=== PATIENT | male | born 1975 | race Caucasian/White ===

== ENCOUNTER 2017-03-13 17:24 | Emergency (ER) | payer OTHER ==
[~2017-03-13] VITALS: Ht 177.8 cm; Wt 79.4 kg
[~2017-03-13 17:24] MED LIST: ALEVE220 MG PO; CIPRO 500MG TA500 MG PO; FLONASE 50 MCG16 GM; HYDROCODONE-APA1 TA2 PO; HYDROCODONE1 TABLET PO; IBUPROFEN600 MG PO; KEFLEX 500MG.500 MG PO; LAMICTAL 100 M100 MG PO; LORTAB 5/3251 TAB PO; LORTAB 500 MG-11 TAB PO; LORTAB 500 MG-71 TAB PO; NAPROXEN SODIU500 MG PO; ONDANSETRON4 M1 PO; PHENERGAN 12.12.5 M1 PO; PHENERGAN 25MG.25 M1 PO; PHENERGAN25 M3 PO; TYLENOL SINUS C PO; TYLENOL SINUS OR; TYLENOL W/CODEI1 TA2 PO; ULTRAM50 MG PO; VICODIN 5/500 T1 TAB PO; VICODIN 7.5/501 EACH PO; VICODIN ES 7.51 EACH PO; ZOFRAN ODT4 MG PO; ZOFRAN ODT8 MG PO
--- OUTSIDE RECORDS SUMMARY | 2017-03-13 17:29 | External Medical Summary Rpt ---
Author Author , Organization [employer] Address Unknown Phone Unavailable Support Name Relationship Address Phone ANUSHA Next Of Kin [address] [place] [address] [facility] [address] [phone] [place] [address] Purpose Continuity of Care Document - 01-28-2013 through 2016 Allergies, Adverse Reactions, Alerts Type Allergy to substance Adverse Reaction to Substance Substance Reaction Severity NO KNOWN ALLERGIES Unknown Unknown Medications Na ND Rx Da Fi Fi Am Da Di Ph RX Ph St me C No te ll ll ou ys ag ar # ys at rm s nt no ma ic us Or Da si cy ia de te s n re d HY [address] 07 -3 OC 90 0- Lo OD 78 20 ng ON 07 14 er E/ 9H AP Ac AP ti ve 5/ 50 0M G TA KE Vital Signs 01-28-2013 23:28 Name Value Interpretat Reference Comment ion Range Body 98.0 [degF] Temperature BP 64 mm[Hg] Diastolic BP Systolic 117 mm[Hg] Heart 96 /min Rate/Pulse O2% 99 % Respiratory 20 /min Rate 01-28-2013 22:15 Name Value Interpretat Reference Comment ion Range Body 98.0 [degF] Temperature BP 77 mm[Hg] Diastolic BP Systolic 137 mm[Hg] Heart 105 /min Rate/Pulse O2% 98 % Respiratory 20 /min Rate Encounters Encounter Start End Date Code Location Performer Type Date Emergency SHAWN Almonte MD (ER) 3 22:21 3 23:29 [facility]
--- OUTSIDE RECORDS SUMMARY | 2017-03-13 17:29 | External Medical Summary Rpt ---
Author Author [employer] Organization [employer] Address Unknown Phone Unavailable Purpose Continuity of Care Document - through 2016
--- OUTSIDE RECORDS SUMMARY | 2017-03-13 17:29 | External Medical Summary Rpt ---
Author Author Ksenia [facility] Organization [facility] Address Unknown Phone Unavailable Care Team Providers Care Umbrella Cutter Name Role Phone PHY, UNKNOWN PCP Unavailable Encounter [facility] [id number] Date(s): 11/21/15 - 12/11/16 [facility] [address] [place] [address]- [phone] Discharge Disposition: OP Self Care or Home Attending Physician: Jonathon Carreno MD Admitting Physician: Jonathon Carreno MD Referring Physician: Jonathon Carreno MD Reason for Visit PM Vital Signs No data available for this section Problem List No data available for this section Allergies, Adverse Reactions, Alerts No data available for this section Medications No data available for this section Results No data available for this section Immunizations No data available for this section Procedures No data available for this section Social History No data available for this section Assessment and Plan No data available for this section Hospital Discharge Instructions No data available for this section
--- OUTSIDE RECORDS SUMMARY | 2017-03-13 17:29 | External Medical Summary Rpt ---
Author Author , Organization [employer] Address Unknown Phone Unavailable Support Name Relationship Address Phone ANUSHA Next Of Kin [address] [place] [address] [facility] 36 [phone] [place] [address] Purpose Continuity of Care Document - 01-28-2013 [...] Almonte MD (ER) 3 22:21 3 23:29 [facility]
--- OUTSIDE RECORDS SUMMARY | 2017-03-13 17:29 | External Medical Summary Rpt ---
Author Author Ksenia [facility] Organization [facility] Address Unknown Phone Unavailable Care Team Providers Care Sales Recruiting Coordinator Name Role Phone PHY, UNKNOWN PCP Unavailable Encounter [facility] [id number] Date(s): 11/21/15 - 12/11/16 [facility] [address] [place] [address]- Discharge Disposition: OP Self Care or Home [...]
--- OUTSIDE RECORDS SUMMARY | 2017-03-13 17:29 | External Medical Summary Rpt ---
Demographics Preferred Language Bulgarian Marital Status Unknown Denominational Affiliation Unknown Race Unknown Ethnic Group Unknown Author Author , Organization [employer] Address Unknown Phone Unavailable Purpose Continuity of Care Document - through 2016 Immunization No patient found.
--- OUTSIDE RECORDS SUMMARY | 2017-03-13 17:29 | External Medical Summary Rpt ---
Demographics Preferred Language Turkmen Marital Status Unknown Nondenominational Affiliation Unknown Race Unknown Ethnic Group Unknown Author Author , Organization [employer] Address Unknown Phone Unavailable Purpose Continuity of Care Document - through 2016 Immunization No patient found.
--- OUTSIDE RECORDS SUMMARY | 2017-03-13 17:30 | External Medical Summary Rpt ---
Author Author CONSTANTINOAILEEN Chan, [employer] Organization [employer] Address Unknown Phone Unavailable Results XR SHOULDER RIGHT 4 VIEWS Observa Value Referen Units Interpr Notes Date tion ce etation Range TEXT XR No No No No Nov 05 DIAGNOS SHOULDE informa informa informa informa 2012 IS R RIGHT tion in tion in tion in tion in 2:34 PM BATTERY 4 source source source source VIEWS data data data data Nov 05, 2012 02:34:3 5 PMClini marcelino: Trauma. There is deformi ty of the distal clavicl e. Minimal overlyi ng soft tissues welling . This may beacute . The glenohu meral joint is intact. IMPRESS ION: Probabl e acute distal clavicu lar fractur e XR LUMBAR SPINE AP AND LATERAL Observa Value Referen Units Interpr Notes Date tion ce etation Range TEXT PROCEDU No No No No Sep 02 DIAGNOS RE: informa informa informa informa 2011 IS Lumbar tion in tion in tion in tion in 5:40 PM BATTERY spine, source source source source 09/02/20 data data data data 12.GABI CATION: Fall, pain.FI NDINGS: AP and lateral lumbar spine. No compari son. There appears to silvana chronic F6wtvle ylolysi s with grade 1 spondyl olisthe sis. No acute fractur es ordislo cations areiden tified. IMPRESS ION: Chronic appeari ng L5 spondyl olysis with grade 1spondy lolisth esis. No acute bonyfin dings. XR SHOULDER LEFT 4 VIEWS Observa Value Referen Units Interpr Notes Date tion ce etation Range TEXT PROCEDU No No No No Sep 02 DIAGNOS RE: informa informa informa informa 2011 IS Four tion in tion in tion in tion in 5:40 PM BATTERY view source source source source left data data data data shoulde r, 09/02/20 12.GABI CATION: Trauma, pain.FI NDINGS: Four view left shoulde r. No compari son. No fractur e ordislo cation. No worriso me bonyles ion. No radiopa que foreign body.IM PRESSIO N: Negativ e left shoulde r films.
--- OUTSIDE RECORDS SUMMARY | 2017-03-13 17:30 | External Medical Summary Rpt ---
[...] compari son. There appears to silvana chronic C3cyrmx ylolysi s with grade 1 spondyl olisthe [...]
--- NOTE | 2017-03-13 17:56 | Urgent Treatment Center Report ---
History of Present Issue Date/Time Seen by Provider 03/13/17 1750 Visit Reason Pt arrived:Walked Presenting Problem:PT STATES WAKING UP FEELING BAD THIS MORNING. STATES SINUS PAIN/PRESSURE, HEADACHE, VOMITING, HEAD CONGESTION AND CHILLS Location if Accident: Onset of symptoms date/time:03/13/17/ or onset unknown for:MEDICAL HX UNKNOWN Have you (or family members/close friends) recently traveled outside the [place]? N If Yes, where/when: Have you had exposure to infectious disease within the past month? TB? Other? Specify: Source patient, RN notes reviewed, family Exam Limitations no limitations Comment Patient has headache, sinus pain, pressure, and vomiting, body aches and chills since this am. ALLERGIES Coded Allergies: No Known Allergies (10/13/16) History Medical History General CAD? No Angina: No RI: No Hypertension? No Hyperlipidemia? No CHF? No DVT? No PE? No COPD? No Asthma? Yes Anemia? No GERD? No Gastric ulcers? No GI Bleed? No Hernia? No Thyroid Problems? No Hypothyroidism? No CVA? No Seizures? Yes Diabetes? No Renal Insuffiency? No UTI? No Stones? Yes GB Disease: No Nephritic Syndrome? No Asplenia? No Hepatitis? No Sickle Cell Disease? No Arthritis? No Migraines? No Cataracts? No Glaucoma? No MRSA? No HIV? No TB? No Anxiety? No Depression? No Cancer? No Immunization HX DT/Tetanus Unknown Flu NEVER Pneumonia NEVER Surgical Hx Previous Surgery?Y KIDNEY STONE REMOVED L ROTATOR CUFF REPAIR Family History Family HX Diabetes Yes CAD Yes Hypertension Yes Hyperlipidemia Yes Cancer Yes TB No Social History Smoking Hx Smoker: Current Every Day Smoker Tobacco: Yes Type Cigarettes Packs/day 1 1/2 - 2 Packs Alcohol Alcohol: Yes Review of Systems All Other Systems Reviewed and Negative Constitutional chills, malaise ENT ear pain, nose congestion, throat pain. Respiratory cough Physical Exam Vital Signs Vital Signs Date Time Temp Pulse Resp B/P Pulse O2 O2 Flow FiO2 Ox Delivery Rate 03/13 1738 97.7 89 18 146/85 97 General Appearance normal appearance, no apparent distress Ear, Nose, Throat hearing grossly normal, normal ENT inspection Respiratory Status No: respiratory distress, trachea midline, chest symmetrical. Cardiovascular normal exam, regular rate/rhythm, no peripheral edema, no gallop, no JVD, no murmur, no rub Extremities non-tender, normal range of motion, normal inspection, normal capillary refill Neurologic alert, normal exam, oriented x 3 Medical Decision Making LABS/Meds/Orders Pt receiving controlled substance in ED? No Results/Orders Current Medication Orders Sig/Karl Start time Last Medication Dose Route Stop Time Status Admin Ceftriaxone Sodium 1 GM ONCE ONE 03/13 1800 DC IM 03/13 180 Lidocaine HCl 0 ONCE ONE 03/13 1800 DC IM 03/13 180 Promethazine HCl 25 MG ONCE ONE 03/13 1800 DC IM 03/13 180 Sodium Chloride 25 ML ONCE ONE 03/13 1800 AC IV 03/13 181 Ceftriaxone Sodium 0 .STK-MED ONE 03/13 175 DC .ROUTE Lidocaine HCl 0 .STK-MED ONE 03/13 1759 DC IJ Promethazine HCl 0 .STK-MED ONE 03/13 1758 DC .ROUTE Departure Departure Disposition DC Home or Self Care(routine) Clinical Impression Primary Impression: Sinusitis Qualifiers: Sinusitis location: maxillary Chronicity: acute Recurrence: non- recurrent Qualified Code: J01.00 - Acute maxillary sinusitis, unspecified Secondary Impressions: Vomiting Qualifiers: Vomiting type: bilious vomiting Nausea presence: with nausea Qualified Code: R11.14 - Bilious vomiting Condition STABLE Referrals Choco CORADO,Nathan Nielsen (PCP) Patient Instructions DI for Sinusitis Additional Instructions Rest, fluids, Tylenol/Motrin Discharge Counseling Counseled pt/family regarding diagnosis, medications/RX, home care Prescriptions Current Visit Scripts Azithromycin (Zithromycin (Z-ANDRA) 250MG Tab) 250 MG PO DAILY #1 TAB PROMETHAZINE HCL (Phenergan 12.5MG Tab (Geq)) 12.5 MG PO TIDP PRN vomiting #10 TAB at 1808
[2017-03-13] MEDS ORDERED: ZITHROMAX Z PA250 MG PO (18:07)
[2017-03-13] MEDS ORDERED: PHENERGAN12.5 M3 PO (18:07)
[2017-03-13 18:30] VITALS: BP 146/85
== END 2017-03-13 18:35 | disposition home or self-care (01) ==
LOC: UTC 17:24
DX: J01.00 Acute maxillary sinusitis, unspecified (principal); R11.14 Bilious vomiting

== ENCOUNTER → 2017-08-20 | Outpatient (CLI) | payer OTHER ==
[~2017-08-20] MED LIST changes: +PHENERGAN12.5 M3 PO; +ZITHROMAX Z PA250 MG PO
--- NOTE | 2017-08-20 16:08 | RADIOLOGY REPORT PS360 ---
US [id number] HISTORY: RT FLANK PAIN,H/O STONES ORDERING PHYSICIAN: Nathan Wilhelm MD PATIENT AGE: 41 years COMPARISON: CT scan 10/13/2016 FINDINGS: RIGHT KIDNEY:11 x 6 x 5 cm. No hydronephrosis, fluid collection, or obvious renal mass is evident. Small focus of increased echogenicity is present in the central aspect of the right kidney may represent a nonobstructing stone. LEFT KIDNEY:11 x 5 x 5 cm. No hydronephrosis mass or perinephric fluid collection. Small echogenic focus noted in the central aspect of the left kidney may be due to small nonobstructing stone. OTHER FINDINGS: No other pertinent findings IMPRESSION: 1. No hydronephrosis. 2. Possible nonobstructing bilateral renal calculi
--- NOTE | 2017-08-20 16:09 | RADIOLOGY REPORT PS360 ---
US URINARY BLADDER HISTORY: RT FLANK PAIN,H/O STONES ORDERING PHYSICIAN: Nathan Wilhelm MD PATIENT AGE: 41 years COMPARISON: None FINDINGS: Urinary bladder has an unremarkable appearance with a full volume estimated at 450 mL's. Bilateral ureteral jets are present. Post void volume is approximately 16 mL's. IMPRESSION: Unremarkable ultrasound of the urinary bladder
== END ==
LOC: RAD 14:40
DX: R10.9 Unspecified abdominal pain (principal); Z87.442 Personal history of urinary calculi